=== PATIENT | male | born 1935 | race Caucasian/White ===

== ENCOUNTER 2017-10-14 09:27 | Day surgery (SDC) | payer MEDICARE, BC ==
[2017-10-13 11:49] LABS: BASOPHILS % (AUTO) 0.4 % (0-1); EOSINOPHILS # (AUTO) 0.2 X10'3 (0-0.9); HEMATOCRIT 41.6 % (42.0-52.0); HEMOGLOBIN 13.6 g/dl (14.0-17.9); LYMPHOCYTES # (AUTO) 1.2 X10'3 (1.1-4.8); LYMPHOCYTES % (AUTO) 21.7 % (21-51); MEAN CORPUSCULAR HEMOGLOBIN 28.2 PG (27.0-31.0); MEAN CORPUSCULAR HGB CONC 32.7 % (33.0-36.5); MEAN CORPUSCULAR VOLUME 86.4 FL (78-98); MEAN PLATELET VOLUME 9.9 FL (7.4-10.4); MONOCYTES # (AUTO) 0.5 X10'3 (0-0.9); MONOCYTES % (AUTO) 8.3 % (2-12); NEUTROPHILS # (AUTO) 3.7 X10'3 (1.8-7.7); NEUTROPHILS % (AUTO) 66.6 % (42-75); PLATELET COUNT 157 X10'3 (140-440); RED BLOOD COUNT 4.81 X10'6 (4.70-6.10); RED CELL DISTRIBUTION WIDTH 15.7 % (11.5-14.5); WHITE BLOOD COUNT 5.5 X10'3 (4.5-11.0)
[2017-10-13 12:00] LABS: PARTIAL THROMBOPLASTIN TIME 27 SECONDS (22-32); PROTHROMBIN TIME 10.3 SECONDS (9.0-12.0)
[2017-10-13 12:12] LABS: ALBUMIN 3.8 G/DL (3.4-5.0); ANION GAP 7 (8-16); BLOOD UREA NITROGEN 15 MG/DL (7-18); BUN/CREATININE RATIO 14.4 (5.4-32.0); CALCIUM 8.9 MG/DL (8.5-10.1); CHLORIDE 107 MMOL/L (99-107); CREATININE 1.04 MG/DL (0.60-1.10); GLUCOSE 88 MG/DL (70-104); SODIUM 143 MMOL/L (135-145); eGFR 69 ML/MIN
[2017-10-14] VITALS (9 sets, daily range): BP systolic 139–183; BP diastolic 62–99
[~2017-10-14] VITALS: Ht 172.7 cm; Wt 79.0 kg
[2017-10-14] MEDS ORDERED: CALC600T12 PO (09:53)
[2017-10-14] MEDS ORDERED: DOCU100C41 PO (09:53)
[2017-10-14] MEDS ORDERED: ASPI-41 PO (09:53)
[2017-10-14] MEDS ORDERED: LEVO150T8 PO (09:53)
[2017-10-14] MEDS ORDERED: ATOR10TA87 PO (09:53)
[2017-10-14] MEDS ORDERED: HYDR-3686 PO (09:53)
[2017-10-14] MEDS ORDERED: DILT120C51 PO ×2 (09:53→11:26)
[2017-10-14] MEDS ORDERED: FENO145T38 PO (09:53)
[2017-10-14] MEDS ORDERED: AMLO2.5T2 PO (09:53)
[2017-10-14] MEDS ORDERED: DICL75TA5 PO (09:53)
[2017-10-14] MEDS ORDERED: DEUT6TAB PO (09:53)
[2017-10-14] MEDS ORDERED: LORA-660 PO (09:53)
[2017-10-14] MEDS ORDERED: CLOP75TA35 PO (09:53)
[2017-10-14] MEDS ORDERED: BACL10TA PO (09:53)
[2017-10-14] MEDS ORDERED: PHE12.5T PO (09:53)
[2017-10-14] MEDS ORDERED: normal saline 1000ml 1,000 ML IV SCH (09:55)
[2017-10-14] MEDS ORDERED: diphenhydrAMINE 25mg capsule PO PRN (09:55)
[2017-10-14] MEDS ORDERED: LORazepam 0.5 MG tablet PO PRN (09:55)
[2017-10-14] MEDS ORDERED: UBID100C16 PO (11:26)
[2017-10-14] MEDS ORDERED: [UNRECOGNIZED DRUG - CODE] PO (11:26)
[2017-10-14] MEDS ORDERED: ASPI-1264 PO (11:26)
[2017-10-14] MEDS ORDERED: FISH12002 PO (11:26)
[2017-10-14] MEDS ORDERED: LIDOcaine/PRILOcaine 5gm cream TP ONE (12:05)
[2017-10-14] MEDS ORDERED: verapamil 2.5 mg/ml inj IV ONE (13:56)
[2017-10-14] MEDS ORDERED: fentaNYL/PF 50MCG/1 ML 2ML syringe ONE ×2 (13:56→14:33)
[2017-10-14] MEDS ORDERED: nitroGLYCERIN-Tridil 50MG/D5W 250 ML IV ONE (13:56)
[2017-10-14] MEDS ORDERED: midazolam 2 mg/2 ml injection ONE ×2 (13:56→14:33)
[2017-10-14] MEDS ORDERED: LIDOcaine 1% 30ml preserv. free vial ONE (13:57)
[2017-10-14] MEDS ORDERED: heparin 1,000unit/ml 10ml vial 10 ML ONE (13:57)
[2017-10-14] MEDS ORDERED: iohexol 350MG/ML 100ml bottle IV ONE (13:57)
[2017-10-14] MEDS ORDERED: iohexol 350 MG/ML 50ML vial IV ONE (13:57)
[2017-10-14 15:51] LABS: ISTAT HGB ART 13.9 g/dl (14.0-18.0); ISTAT Hct ART 41 %PCV (42-52); ISTAT O2 SATURATION ARTERIAL 97 % (95-98); ISTAT SOURCE ART
[2017-10-14 15:51] LABS: ISTAT Hct MIX 39 %PCV (42-52); ISTAT O2 SATURATION MIX VENOUS 69 % (60-80); ISTAT SOURCE MIX
== END 2017-10-14 19:45 | disposition home or self-care (01) ==
LOC: SSTAY O 09:27
PROVIDERS: ATTEND Internal Medicine Cardiovascular Disease
DX: I25.10 Atherosclerotic heart disease of native coronary artery without angina pectoris (principal); I48.91 Unspecified atrial fibrillation; I10 Essential (primary) hypertension; I45.81 Long QT syndrome; I34.1 Nonrheumatic mitral (valve) prolapse; I27.20 Pulmonary hypertension, unspecified; N40.0 Benign prostatic hyperplasia without lower urinary tract symptoms; Z85.46 Personal history of malignant neoplasm of prostate; Z79.82 Long term (current) use of aspirin; Z79.899 Other long term (current) drug therapy; Z98.890 Other specified postprocedural states
CPT/HCPCS: 36415; 80048; 82803; 83880; 85014; 85025; 85610; 85730; 93005; 93312; 93460; 99152; 99153; A6257; A6258; A6402; C1769; J1644; J2250; J3010; J3490; J7030; Q0163; Q9967; A4620

== ENCOUNTER 2024-08-31 10:20 | Day surgery (SDC) | payer MEDICARE, BC ==
[2024-08-30 14:14] LABS: ALBUMIN 4.1 G/DL (3.4-5.0); ANION GAP 5 (8-16); BLOOD UREA NITROGEN 26 MG/DL (7-18); BUN/CREATININE RATIO 21.5 (10.0-20.0); CALCIUM 9.1 MG/DL (8.5-10.1); CHLORIDE 103 MMOL/L (99-107); CREATININE 1.21 MG/DL (0.60-1.10); GLUCOSE 87 MG/DL (70-104); POTASSIUM 4.1 MMOL/L (3.5-5.1); SODIUM 139 MMOL/L (135-145); TOTAL CARBON DIOXIDE 30.7 MMOL/L (24-32); eGFR 57 ML/MIN
[2024-08-30 14:17] LABS: BASOPHILS % (AUTO) 0.4 % (0-1); EOSINOPHILS # (AUTO) 0.1 X10'3 (0-0.9); EOSINOPHILS % (AUTO) 1.8 % (0-6); HEMOGLOBIN 15.8 g/dl (14.0-17.9); LYMPHOCYTES # (AUTO) 1.3 X10'3 (1.1-4.8); LYMPHOCYTES % (AUTO) 19.2 % (21-51); MEAN CORPUSCULAR HEMOGLOBIN 29.8 PG (27.0-31.0); MEAN CORPUSCULAR VOLUME 90.1 FL (78-98); MEAN PLATELET VOLUME 9.2 FL (7.4-10.4); MONOCYTES # (AUTO) 0.6 X10'3 (0-0.9); NEUTROPHILS # (AUTO) 4.7 X10'3 (1.8-7.7); NEUTROPHILS % (AUTO) 69.6 % (42-75); PLATELET COUNT 245 X10'3 (140-440); RED BLOOD COUNT 5.33 X10'6 (4.70-6.10); RED CELL DISTRIBUTION WIDTH 17.7 % (11.5-14.5); WHITE BLOOD COUNT 6.8 X10'3 (4.5-11.0)
[2024-08-30 14:18] LABS: APTT 28 SECONDS (22-32); PROTHROMBIN TIME 10.4 SECONDS (9.0-12.0)
[2024-08-31] VITALS (10 sets, daily range): BP systolic 144–173; BP diastolic 82–92; PULSE 64–74; RESP 10–14; TEMP 97.9; O2SAT 96–100
[~2024-08-31] VITALS: Ht 172.7 cm; Wt 75.3 kg
[~2024-08-31 10:20] MED LIST: APIX5TAB3 PO; ASPI-1397 PO; CARV3.12 PO; EMPA10TA PO; FURO-150 PO; LEVO25TA7 PO; LISI20TA28 PO; NOR5T PO; SPIR25TA PO
[2024-08-31] MEDS ORDERED: normal saline 50ml IV soln 50 ML IV ONE (11:35)
[2024-08-31] MEDS ORDERED: sod chloride 0.9% 10ml flush syringe IV ONE (11:35)
[2024-08-31] MEDS ORDERED: ceFAZolin/D5W- 1GM premix 50 ML IV ONE (11:35)
[2024-08-31] MEDS ORDERED: LISI40TA13 PO (11:46)
[2024-08-31] MEDS ORDERED: ROSU20TA98 PO (11:46)
[2024-08-31] MEDS ORDERED: FURO20TA4 PO (11:46)
[2024-08-31] MEDS ORDERED: SPIR25TA5 PO (11:46)
[2024-08-31] MEDS ORDERED: DAPA10TA PO (11:46)
[2024-08-31] MEDS ORDERED: heparin 1,000 UNITS/NS 500ml 2,000 ML ONE (11:54)
[2024-08-31] MEDS ORDERED: LIDOcaine 1% 30ml preserv. free vial ONE (11:56)
[2024-08-31] MEDS ORDERED: ceFAZolin 2gm/dext,iso 50mL 50 ML IV ONE (12:23)
[2024-08-31] MEDS ORDERED: midazolam 1 mg/ML 2ml injection ONE (12:46)
[2024-08-31] MEDS ORDERED: iohexol 350 MG/ML 50ML vial IV ONE (12:47)
[2024-08-31] MEDS ORDERED: fentaNYL/PF 50MCG/1 ML 2ML syringe ONE (12:47)
--- NOTE | 2024-08-31 12:52 | ELECTROCARDIOGRAPH REPORT ---
[facility] Test Date: 2024-08-31 Test Time: 12:50:17 Pat Name: JUAN MONAE Department: [facility] Patient ID: [id number] Room: Gender: M [employer] Supervisor: : [id number] Requested By: SALAZAR VÁZQUEZ Order Number: [id number] Reading MD: Dr. CHON Vázquez Measurements Intervals [place] Rate: 65 P: 0 DE: 0 QRS: 92 QRSD: 102 T: -14 QT: 467 QTc: 486 Interpretive Statements Atrial fibrillation Right axis deviation Anteroseptal infarct, old Borderline T abnormalities, inferior leads Electronically Signed On 08-31-2024 15:15:[address] CHON Vázquez Please click the below link to view image of tracing.
[2024-08-31] MEDS ORDERED: heparin 1,000unit/ml 10ml vial 10 ML ONE (13:27)
[2024-08-31] MEDS: vancomycin/NS 1 GM ADD-VANTAGE 250 ML IV ONE (16:02)
[2024-08-31] MEDS ORDERED: CEPH-585 PO (18:32)
--- NOTE | 2024-09-01 09:51 | CARDIOLOGY REPORT ---
DATE OF SERVICE: 08/31/2024 DICTATING PHYSICIAN: CHON Dawn MD CARDIAC PACEMAKER PLACEMENT REPORT: PRIMARY PHYSICIAN: Sandoval Tobin MD LACQUER MAKER: CHON Dawn MD INDICATION: The patient is an 88-year-old male with history of hypertension, hyperlipidemia, CAD, mitral valve regurgitation, status post mitral clip and chronic atrial fibrillation status post Hodgman device, has been having bradycardia intermittently. Event monitor on 07/01/2024 revealed lowest rate of 34, 100% AFib burden. The patient has been having asymptomatic bradycardia, dizziness, tiredness, fatigue. After discussing risks, benefits, alternative options, the patient prefers to proceed with a Micra placement. Risks, benefits, and alternative options were discussed and informed consent was obtained. PROCEDURES DONE: * Ultrasound-guided right femoral vein visualization and access. * Leadless pacemaker Micra placement on the intraventricular septum. * Fluoroscopy. * Conscious sedation time of 60 minutes. COMPLICATIONS: None. SURGEON: CHON Dawn MD, FACC [employer] INSTALLATION HELPER SURGEON: None. ANESTHESIOLOGIST: None. ANESTHESIA: Klonopin 5 mL. DESCRIPTION OF PROCEDURE: The procedure was carried out under conscious sedation with local anesthesia. Right femoral vein access under ultrasound guidance. A J-wire was positioned in the inferior vena cava. Two Percloses at 10 o'clock and 2 o'clock were positioned. An 8-Sinhala sheath advanced over the wire. Subsequently, Amplatzer wire was taken all the way up to the superior vena cava. Then, the access site was dilated with Rosendo dilator. Subsequently, Micra introducer sheath was advanced all the way up to the mid right atrium and then the introducer and the wires were removed and 5000 mL heparin was already given. A 35 mL of blood was aspirated from the sheath and it was flushed with heparinized saline. Subsequently, loaded on the delivery sheath and delivery catheter with the continuous flush. All air bubbles were observed to be gone and when it was being flushed, the unloaded delivery catheter was introduced into the delivery sheath all the way up to the right atrium. Delivery sheath was retracted to the inferior vena cava. A counterclock rotation was given to delivery catheterization and flexion was given on the delivery catheter and the catheter was negotiated into the right ventricle and subsequently with the clockwise rotation up to about 2 o'clock, the tip was anchored to the intraventricular septum. The position was confirmed by contrast retraction in MARTIN and OLIVEIRA position confirmed to be in good location. A form pressure was applied to create a go[place]ck and the Micra pacemaker was half deployed and then the delivery catheter was withdrawn and it was fully deployed and then afterwards, the pacing and sensing thresholds were checked and found to be appropriate. Subsequently, tug test was performed and made sure that 2/3 times was well anchored. Subsequently, flossing was done and the thread was cut close to the handle and then gradually the thread was removed. Subsequently, the delivery catheter was retrieved into the sheath and it was taken out of the body. The patient was stable and was being paced with a pacemaker. Subsequently, Percloses at 10 o'clock and 2 o'clock were deployed. Good hemostasis was secured. Pressure dressing applied for 10 minutes. Pressure dressing applied. The patient tolerated the procedure with no complications. TECHNICAL INFORMATION: DEVICE USED: Transcatheter pacing Micra system, [employer], model #[id number], serial #[id number], [employer], 08/31/2024, right ventricular septum, R-wave amplitude 11.3 millivolts, 720 ohms of impedance, pacing threshold of 2.8 volts at 0.24 milliseconds. IMPRESSION: An 88-year-old male with chronic atrial fibrillation, sinus bradycardia and pauses with dizziness and symptoms, underwent successful leadless pacemaker Micra placement on intraventricular pacing threshold. There were no right groin complications. CHON Dawn MD TID: [id number] RECEIPT: [id number] ZULEYMA/JASMIN/DALE cc: Primary Medical Doctor LATASHA
== END 2024-08-31 18:20 | disposition home or self-care (01) ==
LOC: SSTAY O 10:20
PROVIDERS: ATTEND Internal Medicine Cardiovascular Disease
DX: I49.5 Sick sinus syndrome (principal); Z00.6 Encounter for examination for normal comparison and control in clinical research program; I48.20 Chronic atrial fibrillation, unspecified; I25.10 Atherosclerotic heart disease of native coronary artery without angina pectoris; I11.0 Hypertensive heart disease with heart failure; I50.9 Heart failure, unspecified; E78.5 Hyperlipidemia, unspecified
CPT/HCPCS: 33274; 36415; 80048; 85025; 85610; 85730; 93005; 99152; 99153; A6258; C1760; C1786; J1644; J2003; J2250; J3010; J3370; J7030; Q9967; Z7610; 76937